=== PATIENT | male | born 1995 | race Caucasian/White ===

== ENCOUNTER 2024-07-21 11:25 | Emergency (ER) | payer SELFPAY ==
[2024-07-21 11:30] VITALS: BP 174/101
[2024-07-21 11:41] VITALS: BMI 24.1
--- NOTE | 2024-07-21 11:49 | ED.GENMED ---
History of Present Illness
General
Chief Complaint: Crisis Evaluation
Source: patient
Exam Limitations: none
Time Seen by Provider: 07/21/24 11:34
History of Present Illness
History of Present Illness:
29-year-old male presents with lawn for cement after being at [facility] and calling in a bomb threat. He was noted to have a flight of ideas and acting erratically. Is brought here. Law enforcement to fill out 302. Patient with a
rapid rate of speech and flight of ideas during exam poor historian otherwise
Phy Exam
Physical Exam
Physical Exam:
General: Well-developed male no acute respiratory distress
HEENT: Normocephalic atraumatic
Heart: Regular rate and rhythm
Lungs: Clear no wheeze
Psychiatric exam: Rapid rate of speech flight of ideas cooperative for the time. He is hyper fixated on buddhism ideas.
Extremities: No cyanosis
Course
Orders/Labs/Results
Orders:
Orders
07/21/24 11:45
Complete Blood Count/With Diff Urgent
Comprehensive Metabolic Panel Urgent
Salicylate Urgent
Tylenol [Acetaminophen] Urgent
07/21/24 11:52
Crisis Consult Urgent
Reason for Consult: 302
07/21/24 12:15
Drug Screen, Urine [Urine Drug Abuse Screen] Urgent
Date Specimen was Collected: 07/21/24
Time Specimen was Collected: 11:53
07/21/24 14:27
Asenapine Sublingual [Saphris] 5 mg SL NOW STA
07/21/24 14:36
Haloperidol Lactate [Haldol] 5 mg IM NOW STA
Lorazepam [Ativan] 2 mg IM NOW STA
07/21/24 15:01
Lorazepam [Ativan] 1 mg PO Q4HPRN PRN
07/21/24 20:00
Asenapine Sublingual [Saphris] 5 mg SL BID
Abnormal Lab Results
07/21/24
11:45
WBC 14.3 H 10^3/uL
(4.8-10.8)
MCH 32.2 H pg
(27.0-31.0)
Abs Immat Gran (auto) 0.1 H 10^3/uL
(0-0.05)
Absolute Neuts (auto) 10.4 H 10^3/uL
(1.4-6.5)
Absolute Monos (auto) 0.9 H 10^3/uL
(0.1-0.6)
Lymphocytes % 19.5 L %
(20.5-51.1)
Glucose 163 H mg/dl
(70-99)
Total Bilirubin 1.4 H mg/dl
(0.2-1.3)
Salicylates < 1.0 L mg/dl
(2.0-20.0)
Acetaminophen < 10 L ug/ml
(10-30)
07/21/24 11:45
07/21/24 11:45
Vital Signs
Initial and Last Documented VS:
Initial Vital Signs
Temp Pulse Resp BP Pulse Ox
99.4 F 139 22 174/101 99
07/21/24 11:30 07/21/24 11:30 07/21/24 11:30 07/21/24 11:30 07/21/24 11:30
Last Documented Vital Signs
Temp Pulse Resp BP Pulse Ox
99.4 F 96 22 133/85 98
07/21/24 11:30 07/21/24 20:54 07/21/24 11:30 07/21/24 20:54 07/21/24 20:54
MDM/Problems Addressed
Differential Diagnosis Includes:
Patient brought here by law enforcement for erratic behavior and calling in a bomb threat at the [facility]. He appears manic on exam and cannot get him to focus on anyone question. Will obtain labs. Consider medication if patient
needs to for anxiety or agitation
*Critical Care Note
Total Time (30-74mins, 75-104mins- exclusive of procedures): Not Applicable
Update Note
Update Note:
Received a call from nurse stating that the patient was escalating walking out of the room. They requested medicine for the patient he declined Saphris. He received IM Haldol and Ativan. He has been seen by psychiatry. 302 was upheld. Working
on placement.
ED Attending Note
-
Portions of this chart may have been created with voice recognition software.� Occasional wrong word or��sound alike� substitutions may have occurred due to the inherent limitations of voice recognition software.
Discharge Plan
Departure
Patient Disposition: Psych Facility
Date of Disposition: 07/21/24
Time of Disposition: 15:23
Patient with high blood pressure during this ER visit?: No
Discharge Problem:
Manic behavior
Interventions
Interventions:
*Risk Screen - Suicide Last Done: 07/21/24 11:30
*General Assessment Last Done: 07/21/24 11:30
*Neglect/Abuse Screening Last Done: 07/21/24 11:30
ED- Fall Risk Assessment Last Done: 07/21/24 16:50
*ED COVID-19 Vaccine History Last Done: 07/21/24 11:51
*Nursing Disposition Last Done: 07/21/24 22:54
ED-Psychological Assessment Last Done: 07/21/24 11:51
Discharge Date and Time
Discharge Date/Time: 07/21/24 22:56
Print Language: PASHTO
[2024-07-21 11:55] LABS: % Basophils 0.3 % (0-2); % Eosinophils 0.9 % (0-6); % Immature Granulocytes 0.4 % (0-0.5); % Lymphocytes 19.5 % (20.5-51.1); % Monocytes 6.2 % (1.7-9.3); % Neutrophils 72.7 % (42.2-75.2); Absolute Eosinophils 0.1 10^3/uL (0-0.7); Absolute Immature Granulocytes 0.1 10^3/uL (0-0.05); Absolute Lymphocytes 2.8 10^3/uL (1.2-3.4); Absolute Monocytes 0.9 10^3/uL (0.1-0.6); Absolute Neutrophils 10.4 10^3/uL (1.4-6.5); Hematocrit 44.4 % (39.0-52.0); Hemoglobin 15.4 g/dL (13.0-18.0); Mean Corp Hgb Conc. 34.7 g/dL (33.0-37.0); Mean Corpuscular Hgb 32.2 pg (27.0-31.0); Mean Corpuscular Volume 92.7 fL (80.0-94.0); Mean Platelet Volume 9.2 fL (7.4-10.4); Nucleated Red Blood Cells % 0 % (-); Platelet Count 240 10^3/uL (130-400); Red Blood Cell Count 4.79 10^6/uL (4.70-6.10); Red Cell Dist. Width 11.6 % (11.5-14.5); White Blood Cell Count 14.3 10^3/uL (4.8-10.8)
[2024-07-21 12:21] LABS: ALT (SGPT) 29 U/L (0-50); AST (SGOT) 31 U/L (17-59); Albumin 4.5 g/dl (3.5-5.0); Alkaline Phosphatase 75 U/L (38-126); Blood Urea Nitrogen 20 mg/dl (9-20); Carbon Dioxide 26 mmol/L (22-30); Chloride 102 mmol/L (98-107); Estimated Creatinine Clearance 108 ml/min; Glucose 163 mg/dl (70-99); Potassium 3.7 mmol/L (3.5-5.1); Sodium 138 mmol/L (135-145); Total Bilirubin 1.4 mg/dl (0.2-1.3); Total Protein 7.1 g/dl (6.3-8.2); eGFR > 60.00
[2024-07-21 12:40] LABS: Amphetamines Negative (Negative); Barbiturates Negative (Negative); Benzodiazepines Negative (Negative); Buprenorphine Negative (Negative); Cocaine Negative (Negative); Marijuana Negative (Negative); Methadone Negative (Negative); Methamphetamines Negative (Negative); Opiates Negative (Negative); Phencyclidine Negative (Negative); Tricyclic Antidepressants Negative (Negative)
[2024-07-21 12:45] LABS: Acetaminophen < 10 ug/ml (10-30); Salicylate < 1.0 mg/dl (2.0-20.0)
[2024-07-21] MEDS: HALDOL 5 MG IM (14:42)
[2024-07-21] MEDS: ATIVAN 2 MG IM (14:42)
--- NOTE | 2024-07-21 14:48 | EDRN ---
Ativan and Haldol IM administered to the pt by this RN, Estrella ABRAHAM and with multiple security guards present due to the pt becoming agitated and threatening violence towards staff, screaming obscenaties at staff and throwing things and kicking things,
the provider was notified and Ativan and Haldol IM were ordered, this RN went to administer the medication in the pts thigh and the pt started screaming and crying and asked for this RN to administer medication in the pts arm, this RN administered
mediation in the pts left arm
--- NOTE | 2024-07-21 14:54 | W.PN.UPDATE ---
Update Note
Progress Note Update
Pt seen for 302 exam, alert, agitated, pacing and getting in promotion writer's face. Speech pressured, with flight of ideas, derogatory, vulgar, disjointed content. Pt denies making a bomb threat, stated he had an appointment, 'ni__ered- up the room', 'got
naked'. Pt too disorganized and pressured to answer questions coherently, intermittently yelling with aggressive hand gestures.
Per Crisis staff, pt's reported he has a hx of Bipolar disorder, several 302 admissions over the past year.
Imp: Bipolar d/o, manic, severe
Rec: Inpatient psychiatric placement on 302, which is upheld
Will order Saphris 5 mg BID and Ativan prn for manic agitation
Will follow
[2024-07-21] MEDS: SAPHRIS 5 MG SL (20:42)
[2024-07-21 20:54] VITALS: BP 133/85
== END 2024-07-21 22:56 ==
LOC: EMR 11:25
PROVIDERS: Physician Assistant; EMERGENCY PHYSICIAN Emergency Medicine; OTHER PHYSICIAN Psychiatry & Neurology Psychiatry
DX: F30.9 Manic episode, unspecified (principal)
CPT/HCPCS: 99285; 96372 ×2; 80053; 80143; 80179; 80306; 85025